=== PATIENT | female | born 1945 | race African-American/Black ===

== ENCOUNTER 2017-07-28 16:03 | Inpatient (IN) | payer MEDICARE ==
[~2017-07-28] VITALS: Ht 167.6 cm; Wt 66.5 kg
[~2017-07-28 16:03] MED LIST: ALPR1TAB2 PO; ASPI325T25 PO; ATO40T PO; BEN2I PO; BENZ0.5T14 PO; BENZ0.5T6 PO; BENZ1TAB2 PO; BREX1TAB6 PO; BUP100T GT; BUP100T PO; BUPR-40 PO; BUPR200T2 PO; BUPRTAB PO; BUPRTAB3 PO; CARI1CAP2 PO; CEPH-37 PO; DONE10TA17 PO; DOXY-216 PO; LAM100T PO; LAMO150T2 PO; LAMO25TA2 PO; POT10T PO; RISP1SOL5 PO; RISP1TAB60 PO; RISP3TAB41 PO; SIMV10TA73 PO; TEMA15CA91 PO; TEMA30CA5 PO; TRIA1TAB18 PO; VILA40TA PO
[2017-07-28] MEDS ORDERED: SODIUM CHLORIDE 0.9% 1,000 ML IVB ONE (17:22)
[2017-07-28] MEDS ORDERED: LORazepam 2MG/ML-1ML VIAL ONE (18:31)
[2017-07-28 18:51] LABS: Basophils # (auto) 0.2 uL; Basophils % (auto) 0.7 % (0.0-2.0); Eosinophils # (auto) 0 uL; Eosinophils % (auto) 0.1 % (0.0-7.0); Hematocrit 41.4 % (36.0-46.0); Hemoglobin 13.6 g/dL (12.2-16.2); Lymphocytes # (auto) 1.9 uL; Lymphocytes % (auto) 7.3 % (10.0-50.0); Mean Corpuscular Hemoglobin 31.7 pg (28.0-32.0); Mean Corpuscular Hgb Conc. 32.8 g/dL (32.0-36.0); Mean Corpuscular Volume 96.4 fL (80.0-100.0); Monocytes # (auto) 1.5 uL; Neutrophils % (auto) 85.9 % (37.0-80.0); Platelet Count (auto) 321 10^3/uL (140-450); Red Blood Cells 4.29 10^6/uL (4.0-5.20); Red Cell Distribution Width 15.4 % (11.8-14.3); White Blood Cell 25.6 10^3/uL (4.4-10.8)
[2017-07-28 18:55] LABS: Albumin 4.1 g/dL (3.4-5.0); BUN/Creatinine Ratio 15.5; Calcium 8.8 mg/dL (8.5-10.1); Magnesium 2.1 mg/dL (1.6-2.6); Potassium 3.6 mmol/L (3.5-5.1); Salicylate 2.2 mg/dL (2.8-20.0)
[2017-07-28 18:57] LABS: Acetaminophen < 2.0 ug/mL (10-30); Bilirubin, Total 3.3 mg/dL (0.2-1.0); Total Protein 7.2 g/dL (6.4-8.2)
[2017-07-28] MEDS ORDERED: LORazepam 2MG/ML-1ML VIAL IM ONE (19:15)
[2017-07-28] MEDS ORDERED: diphenhdrAMINE HCL 50 MG/1 ML VL IV ONE (21:00)
[2017-07-28] MEDS ORDERED: LORazepam 2MG/ML-1ML VIAL IV ONE ×2 (21:00→23:00)
[2017-07-28] MEDS ORDERED: cefTRIAXone 1GM/10ml IVPUSH 10 ML IV ONE (23:00)
[2017-07-28] MEDS ORDERED: ONDANSETRON HCL 4 MG/2 ML VIAL IV PRN (23:00)
[2017-07-28] MEDS ORDERED: SODIUM CHLORIDE 0.9% 500 ML IV ONE (23:00)
[2017-07-28] MEDS ORDERED: ACETAMINOPHEN 325 MG TAB PO PRN (23:00)
[2017-07-28] MEDS ORDERED: HYDROcodone-ACET 5/325MG TAB PO PRN (23:00)
[2017-07-28] MEDS ORDERED: TEMAZEPAM 15 MG CAP PO PRN (23:00)
[2017-07-28] MEDS: SODIUM CHLORIDE 0.9% 1,000 ML IV SCH (23:27)
[2017-07-28 23:51] LABS: Urine Bacteria FEW /hpf (None Seen); Urine Blood Negative /uL (Negative); Urine Mucus FEW (None Seen); Urine Specific Gravity 1.016 (1.001-1.035); Urine WBC 2 /hpf (0 - 5)
[2017-07-29] VITALS (7 sets, daily range): BP systolic 106–130; BP diastolic 53–68
[2017-07-29 00:36] LABS: Amphetamine Screen, Urine NEGATIVE (NEGATIVE); Barbiturate Scree,Urine NEGATIVE (NEGATIVE); Benzodiazephine Screen, Urine POSITIVE (NEGATIVE); Cannabinoid Screen, Urine NEGATIVE (NEGATIVE); Cocaine Screen, Urine NEGATIVE (NEGATIVE); Opiate Scree,Urine NEGATIVE (NEGATIVE); Phencyclidine Screen, Urine NEGATIVE (NEGATIVE)
[2017-07-29] MEDS: chlordiazePOXIDE HCL 5 MG CAP PO PRN ×4 (01:38→21:53)
[2017-07-29 05:58] LABS: Basophils # (auto) 0 uL; Basophils % (auto) 0.3 % (0.0-2.0); Eosinophils # (auto) 0 uL; Eosinophils % (auto) 0.1 % (0.0-7.0); Hematocrit 33.6 % (36.0-46.0); Hemoglobin 11.4 g/dL (12.2-16.2); Lymphocytes # (auto) 1.3 uL; Lymphocytes % (auto) 11.3 % (10.0-50.0); Mean Corpuscular Hemoglobin 32.4 pg (28.0-32.0); Mean Corpuscular Hgb Conc. 33.8 g/dL (32.0-36.0); Mean Corpuscular Volume 95.7 fL (80.0-100.0); Monocytes # (auto) 0.7 uL; Monocytes % (auto) 6.3 % (0.0-12.0); Neutrophils # (auto) 9.5 uL; Nucleated Red Blood Cells % 0.1 %; Platelet Count (auto) 231 10^3/uL (140-450); Red Blood Cells 3.51 10^6/uL (4.0-5.20); Red Cell Distribution Width 15.7 % (11.8-14.3); White Blood Cell 11.5 10^3/uL (4.4-10.8)
[2017-07-29 06:18] LABS: Albumin 3.3 g/dL (3.4-5.0); BUN/Creatinine Ratio 28.6; Calcium 6.9 mg/dL (8.5-10.1); Potassium 3.8 mmol/L (3.5-5.1); Total Protein 5.8 g/dL (6.4-8.2)
[2017-07-29] MEDS: buPROPion HCL 100 MG TAB PO SCH ×2 (06:39→18:30)
[2017-07-29] MEDS: cefTRIAXone 1GM/10ml IVPUSH 10 ML IV SCH (09:01)
[2017-07-29] MEDS: FOLIC ACID 1 MG TAB PO SCH (09:50)
[2017-07-29] MEDS: FAMOTIDINE 20 MG TAB PO SCH ×2 (09:50→21:53)
[2017-07-29] MEDS: lamoTRIgine 25 MG TAB PO SCH (09:50)
[2017-07-29] MEDS: ENOXAPARIN SOD 40 MG/0.4 ML SYRINGE SC SCH (09:50)
[2017-07-29] MEDS: THIAMINE HCL 100 MG TAB PO SCH (09:50)
[2017-07-29] MEDS: SODIUM CHLORIDE 0.9% 1,000 ML IV SCH (12:47)
[2017-07-29] MEDS: ALPRAZolam 0.5 MG TAB PO PRN ×2 (14:23→22:26)
[2017-07-29] MEDS ORDERED: DONEPEZIL HYDROCHLORIDE 5 MG TAB PO SCH (22:00)
[2017-07-30] MEDS: SODIUM CHLORIDE 0.9% 1,000 ML IV SCH (04:03)
[2017-07-30 04:46] LABS: Basophils # (auto) 0 uL; Basophils % (auto) 0.2 % (0.0-2.0); Eosinophils # (auto) 0 uL; Eosinophils % (auto) 0.8 % (0.0-7.0); Hematocrit 30.3 % (36.0-46.0); Hemoglobin 10.6 g/dL (12.2-16.2); Lymphocytes # (auto) 1.1 uL; Lymphocytes % (auto) 20.4 % (10.0-50.0); Mean Corpuscular Hemoglobin 33.9 pg (28.0-32.0); Mean Corpuscular Hgb Conc. 35.1 g/dL (32.0-36.0); Mean Corpuscular Volume 96.6 fL (80.0-100.0); Monocytes # (auto) 0.4 uL; Monocytes % (auto) 7.9 % (0.0-12.0); Neutrophils # (auto) 3.9 uL; Neutrophils % (auto) 70.7 % (37.0-80.0); Nucleated Red Blood Cells % 0.1 %; Platelet Count (auto) 161 10^3/uL (140-450); Red Blood Cells 3.14 10^6/uL (4.0-5.20); Red Cell Distribution Width 15.7 % (11.8-14.3); White Blood Cell 5.5 10^3/uL (4.4-10.8)
[2017-07-30 05:00] VITALS: BP 122/72
[2017-07-30 05:04] LABS: Alanine Aminotransferase 24 U/L (13-56); Alkaline Phosphatase 50 U/L (45-117); Anion Gap 4 (5-15); Aspartate Aminotransferase 44 U/L (15-37); BUN/Creatinine Ratio 21.1; Bilirubin, Total 0.2 mg/dL (0.2-1.0); Blood Alcohol < 3.0 mg/dL (0-5); Blood Urea Nitrogen 12 mg/dL (7-18); Calcium 7.3 mg/dL (8.5-10.1); Carbon Dioxide 24 mmol/L (21-32); Chloride 112 mmol/L (98-107); GFR African American 135 mL/min; GFR Non-African American 112 mL/min; Glucose 110 mg/dL (74-106); Potassium 4.1 mmol/L (3.5-5.1); Sodium 140 mmol/L (136-145); Total Protein 5.4 g/dL (6.4-8.2)
[2017-07-30] MEDS: buPROPion HCL 100 MG TAB PO SCH (06:31)
[2017-07-30] MEDS: cefTRIAXone 1GM/10ml IVPUSH 10 ML IV SCH (08:49)
[2017-07-30] MEDS: THIAMINE HCL 100 MG TAB PO SCH (08:50)
[2017-07-30] MEDS: lamoTRIgine 25 MG TAB PO SCH (08:50)
[2017-07-30] MEDS: FOLIC ACID 1 MG TAB PO SCH (08:50)
[2017-07-30] MEDS: FAMOTIDINE 20 MG TAB PO SCH (08:50)
[2017-07-30] MEDS: ENOXAPARIN SOD 40 MG/0.4 ML SYRINGE SC SCH (08:51)
[2017-07-30 09:05] VITALS: BP 150/95
[2017-07-30 12:04] VITALS: BP 150/95
== END 2017-07-30 12:36 | disposition home or self-care (01) | DRG 871 ==
LOC: EDBD 16:03 → ER 16:12 → OVERFLOW 16:13 → EDUNIT# 16:13 → WEST WING 07-29 02:00
PROVIDERS: ADMIT Nurse Practitioner; ATTEND Nurse Practitioner
DX: A41.9 Sepsis, unspecified organism (principal); G92 Toxic encephalopathy; J18.9 Pneumonia, unspecified organism; J44.0 Chronic obstructive pulmonary disease with (acute) lower respiratory infection; E86.0 Dehydration; F10.129 Alcohol abuse with intoxication, unspecified; F17.200 Nicotine dependence, unspecified, uncomplicated; F41.9 Anxiety disorder, unspecified; F32.9 Major depressive disorder, single episode, unspecified; Z79.82 Long term (current) use of aspirin; Z82.0 Family history of epilepsy and other diseases of the nervous system; Z79.899 Other long term (current) drug therapy
CPT/HCPCS: 36415; 70450; 71045; 80053; 80307; 80320; 80329; 81001; 83735; 85025; 87040; 87400; 94761; 96361; 96372; 96374; 96375

== ENCOUNTER 2017-09-23 12:14 | Emergency (ER) | payer MEDICARE ==
[~2017-09-23] VITALS: Ht 172.7 cm; Wt 54.4 kg
[2017-09-23 12:56] LABS: Basophils # (auto) 0 uL; Basophils % (auto) 0.4 % (0.0-2.0); Eosinophils # (auto) 0.1 uL; Eosinophils % (auto) 2.2 % (0.0-7.0); Hematocrit 41.3 % (36.0-46.0); Hemoglobin 13.5 g/dL (12.2-16.2); Lymphocytes # (auto) 2.3 uL; Lymphocytes % (auto) 40.4 % (10.0-50.0); Mean Corpuscular Hemoglobin 30.9 pg (28.0-32.0); Mean Corpuscular Hgb Conc. 32.6 g/dL (32.0-36.0); Mean Corpuscular Volume 94.9 fL (80.0-100.0); Monocytes # (auto) 0.4 uL; Monocytes % (auto) 6.5 % (0.0-12.0); Neutrophils # (auto) 2.9 uL; Neutrophils % (auto) 50.5 % (37.0-80.0); Nucleated Red Blood Cells % 0.1 %; Platelet Count (auto) 245 10^3/uL (140-450); Red Blood Cells 4.35 10^6/uL (4.0-5.20); Red Cell Distribution Width 14.1 % (11.8-14.3); White Blood Cell 5.8 10^3/uL (4.4-10.8)
[2017-09-23] MEDS: SODIUM CHLORIDE 0.9% 1,000 ML IVB ONE ×2 (12:59→19:02)
[2017-09-23 13:08] LABS: Albumin 3.8 g/dL (3.4-5.0); BUN/Creatinine Ratio 8.1; Calcium 8.6 mg/dL (8.5-10.1)
[2017-09-23 13:12] LABS: Acetaminophen < 2.0 ug/mL (10-30); Bilirubin, Total 0.2 mg/dL (0.2-1.0); Salicylate < 1.7 mg/dL (2.8-20.0); Total Protein 6.7 g/dL (6.4-8.2)
[2017-09-23] MEDS ORDERED: THIAMINE INJ 100 MG, MULTIPLE VITAMIN 10 ML, FOLIC ACID 1 MG, MAGNESIUM SULF SDV 50% 8 ... IV SCH ×5 (18:00)
[2017-09-23] MEDS ORDERED: MVI in SODIUM CHLORIDE 0.9% 1,010 ML ONE (19:55)
[2017-09-23 20:34] VITALS: BP 135/69
== END 2017-09-23 21:12 | disposition home or self-care (01) ==
LOC: ER 12:14 → EDBD 12:14 → EDUNIT# 12:14 → ER 21:12
DX: T42.4X1A Poisoning by benzodiazepines, accidental (unintentional), initial encounter (principal); R41.82 Altered mental status, unspecified; F10.10 Alcohol abuse, uncomplicated; F41.9 Anxiety disorder, unspecified; F32.9 Major depressive disorder, single episode, unspecified; F17.200 Nicotine dependence, unspecified, uncomplicated; Z79.82 Long term (current) use of aspirin; Y92.89 Other specified places as the place of occurrence of the external cause
CPT/HCPCS: 36415; 71045; 80053; 80320; 80329; 83735; 85025; 93005; 94761; 96361; 96365; 99285; J3411; J3475; J7030